=== PATIENT | female | born 1945 | race African-American/Black ===

== ENCOUNTER 2022-03-13 14:47 | Emergency (ER) | payer MEDICARE, MEDICAID ==
[~2022-03-13] VITALS: Ht 160 cm; Wt 82.0 kg
[~2022-03-13 14:47] MED LIST: ASPIRIN; FOLIC ACID
[2022-03-13 15:20] VITALS: BP 171/82
[2022-03-13] MEDS ORDERED: GLUCAGON,HUMAN RECOMBINANT 1MG/VIAL IM ONE (16:00)
[2022-03-13] MEDS ORDERED: SODIUM CHLORIDE 0.9% 1,000 ML IV ONE (17:30)
[2022-03-13 18:37] LABS: BASOPHILS % 0.7 % (0.0-2.0); EOSINOPHILS % 1.2 % (0.0-5.0); HEMATOCRIT. 41.6 % (36.0-48.0); HEMOGLOBIN. 13.6 g/dL (12.0-16.0); LYMPHOCYTES % 38.2 % (20.0-50.0); MEAN CORPUSCULAR HEMOGLOBIN 29.9 pg (28.0-32.0); MEAN CORPUSCULAR VOLUME 91.8 fL (81.0-99.0); MEAN PLATELET VOLUME 9.7 fl (7.4-10.4); MONOCYTES % 9.6 % (2.0-8.0); NEUTROPHILS % 50.3 % (40.0-76.0); PLATELET 205 x1000/uL (130-400); RED BLOOD CELL COUNT 4.53 mill/uL (4.2-5.4); RED CELL DISTRIBUTION WIDTH 14.1 % (11.6-14.6)
[2022-03-13 18:45] LABS: CHLORIDE 105 mEq/L (98-107)
[2022-03-13 18:47] LABS: INR 1.1; PROTHROMBIN TIME 11.4 sec (9.6-11.0)
[2022-03-13] MEDS ORDERED: MAGNESIUM/ALUMINUM HYDROXIDE/SIMETHICONE 30ML UDC PO STA (19:46)
[2022-03-13] MEDS ORDERED: VISCOUS LIDOCAINE 2% 15 ML UDC PO STA (19:46)
== END 2022-03-13 21:54 | disposition home or self-care (01) ==
LOC: ER 14:47
DX: R13.10 Dysphagia, unspecified (principal); R09.89 Other specified symptoms and signs involving the circulatory and respiratory systems
CPT/HCPCS: 36415; 70360; 70490; 71045; 80053; 85025; 85610; 96372; 99285; J1610; J7030